=== PATIENT | female | born 1950 | race Caucasian/White ===

== ENCOUNTER 2017-03-03 22:41 | Inpatient (IN) | payer MEDICARE ==
[~2017-03-03] VITALS: Ht 160 cm; Wt 49.6 kg
[2017-03-03] MEDS ORDERED: ONDANSETRON 4 MG/2 ML VIAL IV ONE (22:45)
[2017-03-03] MEDS ORDERED: ENALAPRILAT DIHYDRATE 1.25 MG/1 ML VIAL IV ONE (22:45)
[2017-03-03] MEDS ORDERED: IV NORMAL SALINE 500 ML BAG IV ONE (22:45)
[2017-03-03 22:56] LABS: BASOPHILS # (AUTO) 0.2 K/uL (0.0-8.0); BASOPHILS % (AUTO) 1.7 % (0.0-2.0); EOSINOPHILS # (AUTO) 0.1 K/uL (0.0-0.7); EOSINOPHILS % (AUTO) 0.5 % (0.0-7.0); HEMATOCRIT 40.1 % (37-47); HEMOGLOBIN 13.5 G/DL (12.0-16.0); LYMPHOCYTES # (AUTO) 1.3 K/UL (0.8-4.8); LYMPHOCYTES % (AUTO) 9.9 % (20.5-51.5); MEAN CORPUSCULAR HEMOGLOBIN 32.7 UUG (27.0-31.0); MEAN CORPUSCULAR HGB CONC 34 g/dL (32.0-37.0); MONOCYTES # (AUTO) 0.8 K/UL (0.1-1.30); MONOCYTES % (AUTO) 6.1 % (0.0-11.0); NEUTROPHILS # (AUTO) 10.4 K/UL (1.8-8.9); NEUTROPHILS % (AUTO) 81.8 % (38.5-71.5); PLATELET COUNT (AUTO) 366 K/UL (150-450); RED BLOOD CELL COUNT(AUTO) 4.14 MIL/UL (4.2-5.4); WHITE BLOOD COUNT (AUTO) 12.8 K/UL (4.0-11.2)
[2017-03-03] MEDS ORDERED: ALTEPLASE 100 MG VIAL IV ONE (23:00)
--- NOTE | 2017-03-03 23:00 | NUR ---
IVAN RA FROM HOME. PT IS A 66 Y/O FEMALE. AMBULATORY WITH STEADY GAIT. SPEAKING IN FULL SENTENCES. NAD NOTED. VSS. HERE FOR: LEFT SIDED WEAKNESS THAT OCCURED AT 1730. NO FACIAL DROOP NOTED. +LEFT SIDED WEAKNESS ON ARM AND LEGS. PT IS ALERT/ORIENTED X 4. MD OSWALD AT BEDSIDE. CODE STROKE INITIATED. IV ACCESS INITIATED ORDERED BY . LAB COLLECTED. PT WENT TO CT WITH RN AT BEDSIDE. X-RAY DONE. MD SAAB [NEUROLOGIST] PERFORMED STROKE EVALUATION. AWARE OF LAST KNOWN WELL TIME WHICH WAS AT 1730. PT IS NOT QUALIFIED FOR TPA. MD OSWALD AWARE; TPA D/C. PT'S VSS STABLE.
[2017-03-03] MEDS ORDERED: ONDANSETRON 4 MG/2 ML VIAL ONE (23:03)
[2017-03-03] MEDS ORDERED: NORMAL SALINE FLUSH 10 ML DISP.SYRIN ONE (23:04)
[2017-03-03] MEDS ORDERED: IOHEXOL 350 100 ML INFUS..BTL ONE (23:04)
[2017-03-03] MEDS ORDERED: IV NORMAL SALINE 250 ML IV ONE (23:04)
[2017-03-03 23:09] LABS: CREATININE 0.6 mg/dL (0.6-1.3)
[2017-03-03 23:14] LABS: BILIRUBIN,DIRECT 0.1 mg/dL (0.0-0.2); BILIRUBIN,TOTAL 0.4 mg/dL (0.2-1.0); TOTAL PROTEIN, SERUM 6.9 g/dL (6.4-8.2)
--- NOTE | 2017-03-03 23:22 | NUR ---
Call placed to [facility], Dr. De Leon has been paged.
[2017-03-03] MEDS ORDERED: ACETAMINOPHEN 325 MG TABLET PO PRN (23:30)
[2017-03-03] MEDS ORDERED: ENOXAPARIN SODIUM 40 MG/0.4 ML DISP.SYRIN SQ SCH (23:30)
[2017-03-03] MEDS ORDERED: ASPIRIN 325 MG TABLET PO ONE (23:45)
[2017-03-04] MEDS ORDERED: ASPIRIN 325 MG TABLET ONE (00:01)
--- NOTE | 2017-03-04 00:15 | NUR ---
REPORT GIVEN TO AUGUST LLANOS AWARE OF PT'S CURRENT CONDITION. WILL CONTINUE FURTHER PLAN OF CARE
[2017-03-04 00:32] LABS: THYROID STIMULATING HORMONE 6.14 mIU/mL (0.358-3.740)
--- NOTE | 2017-03-04 00:40 | NUR ---
RECEIVED PATIENT FROM ER VIA GURNEY, ACCOMPANIED BY SPOUSE. PT IS ALERT, RESPONSIVE, IN NO ACUTE DISTRESS. PT IS ADMITTED TO TELE UNDER THE CARE OF DR. WALTERS. DX: STROKE. NOTIFIED FOR NEW ORDERS. BELONGING LIST DONE, NEW ADMISSION PROCESS AND CARE PLAN INITIATED. LEFT SIDE WEAKNESS NOTED. NIHSS DONE, CORE MEASURES DONE PER PROTOCOL. PT IS TELE - SR, NO C/O OF CHEST PAIN/SOB, NO HEADACHE, NO NAUSEA/VOMITING. SAFETY MEASURES IN PLACE, CALL LIGHT WITHIN REACH. WILL CONTINUE TO MONITOR.
[2017-03-04 00:44] LABS: POTASSIUM 2.5 mmol/L (3.5-5.1)
[2017-03-04 00:49] VITALS: BP 125/70
[2017-03-04 00:57] LABS: *BILIRUBIN,URIN NEGATIVE (NEGATIVE); *BLOOD, URINE Trace-intact (NEGATIVE); *CLARITY,URINE CLEAR (CLEAR); *COLOR,URINE YELLOW (YELLOW); *KETONES,URINE 1+ (NEGATIVE); *PROTEIN,URINE NEGATIVE (NEGATIVE); *UROBILINOGEN,URINE 0.2 E.U./dl (NORMAL); LEUKOCYTE ESTERASE ,URINE TRACE (NEGATIVE); NITRITE, URINE NEGATIVE (NEGATIVE); PH,URINE 7.5 (5.0-8.0); UGLUCOSE NEGATIVE (NEGATIVE)
[2017-03-04] MEDS ORDERED: POTASSIUM CHLORIDE 20 MEQ TAB.PRT.SR PO SCH (01:00)
[2017-03-04 01:08] LABS: BACTERIA,URINE RARE /HPF (NONE SEEN); RBC,URINE 0-3 /HPF (0-3); SQUAMOUS EPITHELIAL CELL,UR FEW /HPF (NONE SEEN)
[2017-03-04] MEDS: BLOOD SUGAR DIAGNOSTIC 1 EACH STRIP VI SCH ×6 (01:12→21:21)
[2017-03-04 04:41] VITALS: BP 109/66
--- NOTE | 2017-03-04 06:00 | NUR ---
PT SLEPT WELL, IN NO ACUTE DISTRESS. PT IS PLEASANT, COOPERATIVE. UPPER/LOWER LEFT SIDE EXTREMITY WEAKNESS NOTED. SAFETY MEASURES IN PLACE, WILL CONTINUE TO MONITOR.
--- NOTE | 2017-03-04 06:00 | NUR ---
PT NOT NPO. PLS SEE ACCUCHECK SCHEDULED FOR 72.
[2017-03-04] MEDS: ONDANSETRON 4 MG/2 ML VIAL IV PRN ×3 (06:13→18:30)
[2017-03-04] MEDS ORDERED: ONDANSETRON 4 MG/2 ML VIAL ONE (06:23)
--- NOTE | 2017-03-04 07:30 | NUR ---
PAGED DR. WALTERS REGARDING CHANGES IN THE PATIENT'S LEFT SIDE MOVEMENT. AWAITING FOR CALL BACK
--- NOTE | 2017-03-04 07:45 | NUR ---
MD NOTIFIED REGARDING CHANGE IN LEFT SIDED WEAKNESS. PT IS NOT ABLE TO MOVE LEFT ARM, ABLE TO LIFT LEFT LEG ABOUT AN INCH AND NOT ABLE TO WIGGLE TOES.
[2017-03-04] MEDS: ASPIRIN EC 81 MG TABLET.DR PO SCH (08:46)
[2017-03-04] MEDS ORDERED: POTA10CA43 PO (09:16)
[2017-03-04] MEDS ORDERED: GABA-532 PO (09:16)
[2017-03-04] MEDS ORDERED: AMIL1TAB2 PO (09:16)
[2017-03-04] MEDS ORDERED: ESCI10TA PO (09:16)
[2017-03-04] MEDS ORDERED: LEVO100T PO (09:16)
[2017-03-04] MEDS ORDERED: GABA-534 PO (09:16)
[2017-03-04] MEDS ORDERED: DISU500T3 PO (09:16)
[2017-03-04] MEDS: CEFTRIAXONE 1 G in IV DEXTROSE 5% 50 ML IV SCH (11:00)
[2017-03-04 11:10] VITALS: BP 130/71
[2017-03-04] MEDS: LEVOTHYROXINE SODIUM 100 MCG TABLET PO SCH (13:13)
[2017-03-04] MEDS: PANTOPRAZOLE SODIUM 40 MG TABLET.DR PO SCH (13:13)
[2017-03-04 15:43] VITALS: BP 144/75
[2017-03-04] MEDS: GABAPENTIN 100 MG CAPSULE PO SCH (17:35)
[2017-03-04 20:30] VITALS: BP 136/77
[2017-03-04] MEDS: SIMVASTATIN 40 MG TABLET PO SCH (20:58)
[2017-03-04] MEDS: GABAPENTIN 300 MG CAPSULE PO SCH (20:58)
[2017-03-04] MEDS: ENOXAPARIN SODIUM 40 MG/0.4 ML DISP.SYRIN SQ SCH (21:00)
--- NOTE | 2017-03-04 23:30 | NUR ---
Patient c/o of stuffy nose/congestion and difficulty breathing through nostrils. Provided warm, moist washcloth to soothe and humidify nostrils. Provided hot water to drink. Patient still c/o of stuffy nose and stated "I have to have the nose spray, I can't breath through my nose". MD notified to request for orders.
--- NOTE | 2017-03-04 23:50 | NUR ---
New order for nasal spray taken by event manager from .
[2017-03-05] VITALS: BP 135/75
[2017-03-05] MEDS: FLUTICASONE PROP NASAL SPRAY 16 GM BOTTLE NS PRN ×2 (00:07→14:09)
[2017-03-05] MEDS ORDERED: Z GUARD REMEDY PASTE 57 GM TUBE TOP PRN (05:30)
--- NOTE | 2017-03-05 05:58 | NUR ---
Pt slept intermittently, in no acute distress. NIHSS done per shift. Pt is very pleasant and c/o occasionally of being uncomfortable in bed. Assisted, repositioned patient for comfort. No c/o of nausea from midnight through the morning. Patient kept clean/dry. Safety measures in place, will continue to monitor.
[2017-03-05] MEDS: PANTOPRAZOLE SODIUM 40 MG TABLET.DR PO SCH (06:03)
[2017-03-05] MEDS: LEVOTHYROXINE SODIUM 100 MCG TABLET PO SCH (06:03)
[2017-03-05] MEDS: BLOOD SUGAR DIAGNOSTIC 1 EACH STRIP VI SCH ×4 (06:37→21:38)
--- NOTE | 2017-03-05 08:00 | NUR ---
PATIENT RECEIVED SITTING UP IN BED, NO ACUTE DISTRESS NOTED. PLEASANT UPON APPROACH. AOX4. PT C/O LEFT SIDE WEAKNESS, UNABLE TO LIFT LEFT ARM OR LEFT LEG UPON ASSESSMENT BUT ABLE TO WIGGLE FINGERS AND DENIES ANY NUMBNESS. NO SLURRING OF SPEECH NOTED. WILL CONTINUE TO MONITOR FOR SAFETY. BED IN LOW AND LOCKED POSITION. CALL LIGHT WITHIN REACH.
[2017-03-05 08:18] LABS: CREATININE 0.6 mg/dL (0.6-1.3)
[2017-03-05] MEDS: ASPIRIN EC 81 MG TABLET.DR PO SCH (08:27)
[2017-03-05] MEDS: ESCITALOPRAM OXALATE 10 MG TABLET PO SCH (08:27)
[2017-03-05] MEDS: GABAPENTIN 100 MG CAPSULE PO SCH ×2 (08:27→18:06)
[2017-03-05] MEDS: ONDANSETRON 4 MG/2 ML VIAL IV PRN ×2 (08:38→22:09)
[2017-03-05] MEDS: CEFTRIAXONE 1 G in IV DEXTROSE 5% 50 ML IV SCH (10:46)
[2017-03-05] MEDS: POTASSIUM CHLORIDE 10 MEQ CAPSULE.SA PO SCH (11:40)
[2017-03-05 11:42] VITALS: BP 133/65
--- NOTE | 2017-03-05 13:00 | NUR ---
PT SITTING UP IN BED, NO ACUTE DISTRESS NOTED. PT FAMILY AT BEDSIDE. GIVEN FLONASE REQUESTED BY PT. DENIES ANY PAIN OR SOB AT THIS TIME. SEEN BY PHYSICAL THERAPY. WILL CONTINUE TO MONITOR FOR SAFETY.
[2017-03-05] MEDS ORDERED: CLOPIDOGREL 75 MG TABLET PO ONE (16:15)
[2017-03-05 16:24] VITALS: BP 129/65
--- NOTE | 2017-03-05 17:22 | NUR ---
PT SITTING UP IN BED EATING DINNER, PT FAMILY AT BEDSIDE. BLOOD SUGAR PRE DINNER 100MG/DL, NO S/S HYPO/HYPERGLYCEMIA NOTED. DENIES ANY PAIN AT THIS TIME.
[2017-03-05 21:00] VITALS: BP 122/81
[2017-03-05] MEDS ORDERED: CLOPIDOGREL 75 MG TABLET PO SCH (21:00)
--- NOTE | 2017-03-05 21:15 | NUR ---
REPLACED PATIENT'S MATTRESS TO AN AIR/SPECIALTY MATTRESS.
[2017-03-05] MEDS: SIMVASTATIN 40 MG TABLET PO SCH (21:34)
[2017-03-05] MEDS: GABAPENTIN 300 MG CAPSULE PO SCH (21:34)
[2017-03-05] MEDS: ENOXAPARIN SODIUM 40 MG/0.4 ML DISP.SYRIN SQ SCH (21:39)
[2017-03-06 00:07] VITALS: BP 131/72
--- NOTE | 2017-03-06 01:30 | NUR ---
PT ANXIOUS, RESTLESS, NOT BEING ABLE TO SLEEP. PROVIDED NON-PHARM INTERVENTIONS, MADE COMFORTABLE IN BED, REPOSITIONED, PROVIDED WARM BLANKET. MD NOTIFIED, REQUESTED MEDICATION TO HELP WITH HER ANXIETY/SLEEP.
[2017-03-06] MEDS ORDERED: LORAZEPAM 2 MG/1 ML VIAL IV PRN (02:15)
--- NOTE | 2017-03-06 02:15 | NUR ---
RECEIVED NEW ORDER FROM . READ BACK DONE, NEW ORDER CARRIED OUT.
--- NOTE | 2017-03-06 02:20 | NUR ---
PT IS HALF ASLEEP, AROUSABLE. PT STATED "I HAVE SETTLED DOWN". PT IS LESS ANXIOUS. ATIVAN NOT ADMINISTERED. WILL CONTINUE TO MONITOR.
[2017-03-06] MEDS ORDERED: LORAZEPAM 2 MG/1 ML VIAL ONE (03:50)
--- NOTE | 2017-03-06 03:50 | NUR ---
Pt woke up anxious, restless, c/o of uncomfortable in bed, bed too small. Patient claims to hear someone in her toilet to be vomiting a lot and banging the door. Patient forgetful at times. Does not remember bed was replaced at night to an air mattress. Administered med for anxiety as ordered. Will reassess and monitor. Safety measures in place, bed alarm on, side rails up, call light within reach.
[2017-03-06 04:58] VITALS: BP 140/81
--- NOTE | 2017-03-06 06:00 | NUR ---
Pt slept well after administering Ativan. Pt stated comfort and relief. Pt in no acute distress, kept clean/dry, repositioned for comfort. Pt dislikes the air mattress and feels that she prefers the bed as originally situated. Safety measures in place, call light within reach, will continue to monitor. Pt is on tele sinus rhythm, no c/o of sob/chest pain.
[2017-03-06] MEDS: LEVOTHYROXINE SODIUM 100 MCG TABLET PO SCH (06:14)
[2017-03-06] MEDS: PANTOPRAZOLE SODIUM 40 MG TABLET.DR PO SCH (06:14)
[2017-03-06 06:55] LABS: CREATININE 0.7 mg/dL (0.6-1.3); MAGNESIUM 1.5 mg/dL (1.8-2.4); PHOSPHOROUS 3.2 mg/dL (2.5-4.9); POTASSIUM 3.2 mmol/L (3.5-5.1)
[2017-03-06 06:57] LABS: BASOPHILS % (AUTO) 0.2 % (0.0-2.0); EOSINOPHILS % (AUTO) 0.5 % (0.0-7.0); HEMATOCRIT 36.4 % (31.2-41.9); HEMOGLOBIN 12.6 g/dL (10.9-14.3); LYMPHOCYTES # (AUTO) 1.2 K/uL (20.0-40.0); LYMPHOCYTES % (AUTO) 15.1 % (20.5-51.5); MEAN CORPUSCULAR HEMOGLOBIN 33.7 uug (24.7-32.8); MEAN CORPUSCULAR HGB CONC 35 g/dL (32.3-35.6); MEAN CORPUSCULAR VOLUME 97.1 fL (75.5-95.3); MONOCYTES # (AUTO) 0.7 K/uL (2.0-10.0); MONOCYTES % (AUTO) 9.5 % (0.0-11.0); NEUTROPHILS # (AUTO) 5.7 K/uL (1.8-8.9); NEUTROPHILS % (AUTO) 74.7 % (38.5-71.5); PLATELET COUNT (AUTO) 273 K/uL (179-408); RED BLOOD CELL COUNT(AUTO) 3.75 MIL/uL (3.63-4.92)
[2017-03-06 07:08] LABS: WHITE BLOOD COUNT (AUTO) 7.6 K/uL (3.8-11.8)
[2017-03-06] MEDS: BLOOD SUGAR DIAGNOSTIC 1 EACH STRIP VI SCH ×2 (07:11→12:17)
[2017-03-06] MEDS: ESCITALOPRAM OXALATE 10 MG TABLET PO SCH (08:39)
[2017-03-06] MEDS: POTASSIUM CHLORIDE 10 MEQ CAPSULE.SA PO SCH (08:40)
[2017-03-06] MEDS: GABAPENTIN 100 MG CAPSULE PO SCH (08:40)
[2017-03-06] MEDS ORDERED: SIMV40TA5 PO (10:00)
[2017-03-06] MEDS ORDERED: CLOP75TA15 PO (10:00)
[2017-03-06 11:23] VITALS: BP 128/72
--- NOTE | 2017-03-06 12:00 | NUR ---
Received awake, alert, oriented x 3, forgetful at times, left sided weakness. Incontinence care done. Repositioned comfortably.
[2017-03-06] MEDS: CEFTRIAXONE 1 G in IV DEXTROSE 5% 50 ML IV SCH (12:16)
[2017-03-06] MEDS ORDERED: POTASSIUM CHLORIDE 20 MEQ TAB.PRT.SR PO ONE (13:45)
[2017-03-06] MEDS ORDERED: MAGNESIUM OXIDE 400 MG TABLET PO ONE (14:00)
--- NOTE | 2017-03-06 14:30 | NUR ---
With discharge order to ARU. Report given to Shelia. Saline lock removed. Discharged per wheelchair in fair condition, not in distress, afebrile.
== END 2017-03-06 14:40 | DRG 65 ==
LOC: ER 22:42 → TELE 03-04 00:04
PROVIDERS: ADMIT Internal Medicine; ATTEND Internal Medicine
DX: I63.9 Cerebral infarction, unspecified (principal); E22.2 Syndrome of inappropriate secretion of antidiuretic hormone; G62.9 Polyneuropathy, unspecified; G81.94 Hemiplegia, unspecified affecting left nondominant side; N39.0 Urinary tract infection, site not specified; E03.9 Hypothyroidism, unspecified; F32.9 Major depressive disorder, single episode, unspecified; F41.9 Anxiety disorder, unspecified; I10 Essential (primary) hypertension; M19.90 Unspecified osteoarthritis, unspecified site; D72.829 Elevated white blood cell count, unspecified; F10.21 Alcohol dependence, in remission; T43.225A Adverse effect of selective serotonin reuptake inhibitors, initial encounter; Y92.009 Unspecified place in unspecified non-institutional (private) residence as the place of occurrence of the external cause
CPT/HCPCS: 36415; 70030-TC; 70450; 70496; 70551; 71010; 83735; 84100; 84443; 85025; 85651; 85730; 92610; 93005; 93307; 93880; 97110; 97112; 97530; A4663; J0696; J1650; J2060; J2405; J3490; J3535; J7040; J7050; J7060; Q9967

== ENCOUNTER 2017-03-06 14:47 | Inpatient (IN) | payer MEDICARE ==
[~2017-03-06] VITALS: Ht 160 cm; Wt 49.4 kg
[~2017-03-06 14:47] MED LIST: AMIL1TAB2 PO; CLOP75TA15 PO; DISU500T3 PO; ESCI10TA PO; GABA-532 PO; GABA-534 PO; LEVO100T PO; POTA10CA43 PO; SIMV40TA5 PO
--- NOTE | 2017-03-06 14:50 | NUR ---
Pt report received from [facility]. Room prepared and board updated. Pt assessed v/s stable and taken, 98.0 temp, 68 pulse, 19 RR, 116/72, 97% on RA, pictures taken and placed in chart. No c/o pain, accompanied by at bedside and assisted with initial interview questions. made aware, meds reconciled. Call light within reach will continue to monitor and endorse to plastics and composites inspector.
[2017-03-06 15:32] VITALS: BP 116/72
[2017-03-06] MEDS ORDERED: Z GUARD REMEDY PASTE 57 GM TUBE TOP PRN (16:15)
[2017-03-06] MEDS: GABAPENTIN 100 MG CAPSULE PO SCH (18:22)
--- NOTE | 2017-03-06 19:50 | NUR ---
Patient seen during rounds, awake and with at bedside. Patient is alert and verbally responsive. Vital signs taken WNL, BP 118/69, T 97.7, P 72, R 17, O2 sat 97% RA. Diaper changed per soiling. Redness noted on her sacral area, applied with Z guard. Pt. appeared concerns about her condition. Encouraged pt. to verbalize her concerns. Pt. expressed her feelings about her condition but at the same time expressed her willingness to start her therapy (PT/OT) tomorrow. Denies pain at this time. Safety measures provided. Call light in reach. Will continue to monitor the patient.
[2017-03-06] MEDS: CLOPIDOGREL 75 MG TABLET PO SCH (20:38)
[2017-03-06] MEDS ORDERED: ONDANSETRON HCL 4 MG TABLET PO PRN (21:15)
[2017-03-06] MEDS: GABAPENTIN 300 MG CAPSULE PO SCH (21:38)
[2017-03-06] MEDS: SIMVASTATIN 40 MG TABLET PO SCH (21:38)
[2017-03-06] MEDS ORDERED: ONDANSETRON HCL 4 MG TABLET ONE (21:45)
[2017-03-06 21:55] VITALS: BP 118/69
--- NOTE | 2017-03-07 06:05 | NUR ---
Pt. slept throughout the entire shift. Diaper changed per soiling. Denies of any pain. Kept clean, dry and comfortable. Will endorse to AM shift nurse.
[2017-03-07] MEDS: LEVOTHYROXINE SODIUM 100 MCG TABLET PO SCH (06:39)
[2017-03-07] MEDS: BLOOD SUGAR DIAGNOSTIC 1 EACH STRIP VI SCH ×4 (07:06→20:20)
[2017-03-07 07:30] VITALS: BP 110/63
[2017-03-07 07:51] LABS: CREATININE 0.7 mg/dL (0.6-1.3); MAGNESIUM 1.9 mg/dL (1.8-2.4); PHOSPHOROUS 3.6 mg/dL (2.5-4.9); POTASSIUM 3.5 mmol/L (3.5-5.1)
[2017-03-07 07:54] LABS: BASOPHILS % (AUTO) 0.3 % (0.0-2.0); EOSINOPHILS # (AUTO) 0.1 K/uL (0.0-0.7); EOSINOPHILS % (AUTO) 1.1 % (0.0-7.0); HEMATOCRIT 37.1 % (31.2-41.9); LYMPHOCYTES # (AUTO) 1.3 K/uL (20.0-40.0); LYMPHOCYTES % (AUTO) 16.2 % (20.5-51.5); MEAN CORPUSCULAR HEMOGLOBIN 33.9 uug (24.7-32.8); MEAN CORPUSCULAR HGB CONC 35 g/dL (32.3-35.6); MEAN CORPUSCULAR VOLUME 97.2 fL (75.5-95.3); MONOCYTES # (AUTO) 0.7 K/uL (2.0-10.0); MONOCYTES % (AUTO) 9.1 % (0.0-11.0); NEUTROPHILS # (AUTO) 5.7 K/uL (1.8-8.9); NEUTROPHILS % (AUTO) 73.3 % (38.5-71.5); PLATELET COUNT (AUTO) 303 K/uL (179-408); RED BLOOD CELL COUNT(AUTO) 3.82 MIL/uL (3.63-4.92); WHITE BLOOD COUNT (AUTO) 7.8 K/uL (3.8-11.8)
[2017-03-07] MEDS: POTASSIUM CHLORIDE 10 MEQ CAPSULE.SA PO SCH (09:18)
[2017-03-07] MEDS: ESCITALOPRAM OXALATE 10 MG TABLET PO SCH (09:18)
[2017-03-07] MEDS: GABAPENTIN 100 MG CAPSULE PO SCH ×2 (09:18→17:04)
--- NOTE | 2017-03-07 12:15 | NUR ---
Pt SBAR report received, board updated. Pt assessed, denies pain at this time. Pt compliant with all routine morning medication administration, V/S WNL. Grupo brought all at home medications, assisted in completing POLST, signed and placed in chart. is at bedside. Pt has been able to show slight signs of improvement to Upper Left sided flaccidity AEB wiggling fingers slightly. Pt is optimistic and hopeful towards rehabilitation, and eager to actively participate in therapies as tolerated. All comfort and safety measures met. Personal items and call light within reach. Will continue to monitor.
[2017-03-07] MEDS: CLOPIDOGREL 75 MG TABLET PO SCH (17:04)
--- NOTE | 2017-03-07 19:30 | NUR ---
Received patient lying in bed, no s/s of acute distress. No complaints of pain at this time. Call light within reach. Encouraged to call for help when necessary. Will continue to monitor.
--- NOTE | 2017-03-07 19:35 | NUR ---
Pt has remained stable all shift, no changes, seen by MD, new orders for colace received. Will continue to monitor and endorse repair service clerk.
[2017-03-07] MEDS: DOCUSATE SODIUM 100 MG CAPSULE PO SCH (20:16)
[2017-03-07] MEDS: GABAPENTIN 300 MG CAPSULE PO SCH (20:16)
[2017-03-07] MEDS: SIMVASTATIN 40 MG TABLET PO SCH (20:16)
[2017-03-07 21:21] VITALS: BP 106/66
[2017-03-08] MEDS: LEVOTHYROXINE SODIUM 100 MCG TABLET PO SCH (07:10)
--- NOTE | 2017-03-08 07:15 | NUR ---
Patient awake in bed, no s/s of acute distress. No complaints of pain at this time. Slept well. Comfort and safety measures in place. Due meds given. Needs attended. Frequent checks done. Call light kept within reach. Endorsed accordingly.
[2017-03-08] MEDS: BLOOD SUGAR DIAGNOSTIC 1 EACH STRIP VI SCH ×5 (07:18→20:27)
[2017-03-08 07:35] VITALS: BP 98/46
[2017-03-08] MEDS: POTASSIUM CHLORIDE 10 MEQ CAPSULE.SA PO SCH (09:05)
[2017-03-08] MEDS: GABAPENTIN 100 MG CAPSULE PO SCH ×2 (09:05→17:15)
[2017-03-08] MEDS: ESCITALOPRAM OXALATE 10 MG TABLET PO SCH (09:05)
[2017-03-08] MEDS: HCTZ PO SCH ×2 (09:07→17:15)
[2017-03-08] MEDS: AMILORIDE PO SCH ×2 (09:07→17:15)
--- NOTE | 2017-03-08 11:53 | NUR ---
SBAR report received near bedside, board updated. Pt assessed, no SOB on RA, no c/o pain. Pt has agreed to switch rooms to 109. Pt compliant with all routinely scheduled medications this morning, blood sugar checked 43, juices provided and will be rechecked. Pt compliant with all therapies scheduled for today. Visitors at bedside currently. All comfort and safety measures met. Pt able to make needs known. Personal items and call light within reach. Will continue to monitor.
--- NOTE | 2017-03-08 12:15 | NUR ---
notified of low blood sugar. Juice provided, blood sugar rechecked to be 89, Dr. De Leon notified of the improvement. Will continue to monitor.
[2017-03-08] MEDS: CLOPIDOGREL 75 MG TABLET PO SCH (16:00)
--- NOTE | 2017-03-08 18:55 | NUR ---
Pt has remained stable with no changes throughout the shift. BS 79 prior to dinner. New visiter plus at bedside. All comfort and safety measures met. Call light within reach.Will endorse to housing specialist.
[2017-03-08 19:30] VITALS: BP 108/67
--- NOTE | 2017-03-08 19:40 | NUR ---
Pt. seen during rounds, with at bedside. Patient requested for diaper change, assisted FINAL INSPECTION SUPERVISOR in changing. Vital signs taken and recorded, T 98.3, P 71, R 19, BP 108/67, O2 sat @ 96% on RA. Breathing even and no signs of any respi. distress. Body weakness noted on Left hand and Leg. Encouraged patient to verbalize any discomfort. Denies of any pain. Safety measures provided. Placed call light in reach. Will monitor the patient.
--- NOTE | 2017-03-08 20:25 | NUR ---
HS Accu check done, Blood sugar 99mg/dL noted.
[2017-03-08] MEDS: SIMVASTATIN 40 MG TABLET PO SCH (20:26)
[2017-03-08] MEDS: DOCUSATE SODIUM 100 MG CAPSULE PO SCH (20:26)
[2017-03-08] MEDS: GABAPENTIN 300 MG CAPSULE PO SCH (20:26)
[2017-03-09] MEDS: LEVOTHYROXINE SODIUM 100 MCG TABLET PO SCH (06:30)
[2017-03-09] MEDS: BLOOD SUGAR DIAGNOSTIC 1 EACH STRIP VI SCH ×4 (06:37→20:47)
--- NOTE | 2017-03-09 06:47 | NUR ---
Pt. able to sleep the entire night. Diaper changed per soiling 2x in our shift, no BM. Levothyroxine given. AC Accu check done, blood sugar 94mg/dL. Assisted pt. ion brushing her teeth and washing her face. Pt. appreciated the help. Will endorse pt. to AM nurse.
[2017-03-09 07:15] VITALS: BP 114/63
[2017-03-09] MEDS: GABAPENTIN 100 MG CAPSULE PO SCH ×2 (09:00→17:21)
[2017-03-09] MEDS: POTASSIUM CHLORIDE 10 MEQ CAPSULE.SA PO SCH (09:00)
[2017-03-09] MEDS: AMILORIDE PO SCH ×2 (09:00→17:21)
[2017-03-09] MEDS: HCTZ PO SCH ×2 (09:00→17:21)
[2017-03-09] MEDS: ESCITALOPRAM OXALATE 10 MG TABLET PO SCH (10:18)
[2017-03-09] MEDS: CLOPIDOGREL 75 MG TABLET PO SCH (17:21)
--- NOTE | 2017-03-09 19:45 | NUR ---
Received pt. in bed, on semi sykes's position. Very responsive and requested to have her night meds given early so she can sleep early. Denies of any discomfort. Vital signs taken, see ASSISTANT TEACHER PRIMARY notes. Assisted pt. in ADL's, pt. very cooperative. Diaper changed per soiling. Pt. also requested to have her room wall clock be removed tonight because it was too loud for her, will return her wall clock in AM. Pt. very appreciative with our help. Call light in reach. Will monitor the pt.
[2017-03-09] MEDS: GABAPENTIN 300 MG CAPSULE PO SCH (20:17)
[2017-03-09] MEDS: SIMVASTATIN 40 MG TABLET PO SCH (20:17)
[2017-03-09] MEDS: DOCUSATE SODIUM 100 MG CAPSULE PO SCH (20:47)
--- NOTE | 2017-03-10 05:26 | NUR ---
Pt. slept well the entire shift. Pt. not in pain. Breathing even and nonlabored. Routine care provided. Will check her blood sugar later. Will endorse to AM shift nurse.
[2017-03-10] MEDS: BLOOD SUGAR DIAGNOSTIC 1 EACH STRIP VI SCH ×4 (06:32→21:18)
[2017-03-10] MEDS: LEVOTHYROXINE SODIUM 100 MCG TABLET PO SCH (06:32)
[2017-03-10 07:02] VITALS: BP 114/67
[2017-03-10] MEDS: GABAPENTIN 100 MG CAPSULE PO SCH ×2 (09:00→16:38)
[2017-03-10] MEDS: POTASSIUM CHLORIDE 10 MEQ CAPSULE.SA PO SCH (09:31)
[2017-03-10] MEDS: ESCITALOPRAM OXALATE 10 MG TABLET PO SCH (09:32)
[2017-03-10] MEDS: HCTZ PO SCH ×2 (09:32→16:36)
[2017-03-10] MEDS: AMILORIDE PO SCH ×2 (09:32→16:36)
--- NOTE | 2017-03-10 09:56 | NUR ---
SBAR report received near bedside, board updated. Pt assessed no acute distress noted, no c/o pain, no SOB. BS endorsed to be 86 prior to breakfast. Pt compliant with all routinely scheduled morning medications. Pt did refuse Gabapentin due to feeling it makes participation in therapy more difficult and only requests to take for evening dose. Assisted Pt to brush teeth. Pt very optimistic about LUE coordination improvement and care from this facility. All comfort and safety measures met. Pt able to make needs known. Personal items and call light within reach. Will continue to monitor.
--- NOTE | 2017-03-10 15:05 | NUR ---
Pt seen by MD, new orders received and will be followed up. Pt able to make needs known. Will continue to monitor.
[2017-03-10] MEDS: CLOPIDOGREL 75 MG TABLET PO SCH (16:36)
--- NOTE | 2017-03-10 18:11 | NUR ---
No notable changes, v/s stable and labs WNL. at bedside. Will continue to monitor and endorse oncoming shift.
--- NOTE | 2017-03-10 19:45 | NUR ---
Received pt in bed, awake alert and oriented watching television. Verbally responsive and able to make needs known. Denies pain or discomfort at this time. No acute distress noted. All safety measures and fall precautions maintained. Call light within reach. Will continue to monitor.
[2017-03-10 20:38] VITALS: BP 101/60
[2017-03-10] MEDS: SIMVASTATIN 40 MG TABLET PO SCH (21:15)
[2017-03-10] MEDS: GABAPENTIN 300 MG CAPSULE PO SCH (21:15)
[2017-03-10] MEDS: DOCUSATE SODIUM 250 MG CAPSULE PO SCH (21:21)
--- NOTE | 2017-03-10 21:30 | NUR ---
Pt currently complaining of feeling itchy all over her body. Upon assessment, no redness noted. Also complaining of feeling "stuffiness" and "tightness" on her right foot, stating "it feels like someone opened my foot, stuffed a sock inside, and sewed it back up." Denies pain currently. Elevated both feet. No acute distress noted. Dr. Edwards notified. Will continue to monitor. Safety maintained. Call light within reach.
[2017-03-10] MEDS ORDERED: diphenhydrAMINE 25 MG CAP PO ONE (23:45)
--- NOTE | 2017-03-10 23:45 | NUR ---
responded with new orders of Benadryl 25 mg PO x 1 now. Orders noted and carried out. Pt tolerated medicine well. Safety maintained. Call light within reach. Will continue to monitor.
[2017-03-11] MEDS ORDERED: diphenhydrAMINE 25 MG CAP PO ONE (00:02)
[2017-03-11] MEDS: LEVOTHYROXINE SODIUM 100 MCG TABLET PO SCH (06:30)
[2017-03-11] MEDS: BLOOD SUGAR DIAGNOSTIC 1 EACH STRIP VI SCH ×4 (06:37→20:09)
--- NOTE | 2017-03-11 06:50 | NUR ---
Pt slept comfortably throughout the evening with no acute distress. No further complaints pain or discomfort. All due medications given and tolerated well. Kept clean and dry. All safety measures and fall precautions maintained. Call light within reach. Will continue to monitor.
--- NOTE | 2017-03-11 07:30 | NUR ---
Received patient in bed, awake and verbally responsive, able to make her needs known, no complains of itchiness at this time, resident verbalized she slept well. No pain at this time, respirations even and regular,fall precautions and safety provided, will continue to monitor.
[2017-03-11 07:58] VITALS: BP 100/60
[2017-03-11] MEDS: DOCUSATE SODIUM 250 MG CAPSULE PO SCH (08:39)
[2017-03-11] MEDS: ESCITALOPRAM OXALATE 10 MG TABLET PO SCH (08:41)
[2017-03-11] MEDS: GABAPENTIN 100 MG CAPSULE PO SCH ×2 (08:41→17:00)
[2017-03-11] MEDS: POTASSIUM CHLORIDE 10 MEQ CAPSULE.SA PO SCH (08:41)
[2017-03-11] MEDS: HCTZ PO SCH ×2 (09:01→17:01)
[2017-03-11] MEDS: AMILORIDE PO SCH ×2 (09:01→17:01)
--- NOTE | 2017-03-11 14:29 | NUR ---
INTERDISCIPLINARY TEAM CONFERENCE
--- NOTE | 2017-03-11 16:30 | NUR ---
Patient is in bed, alert and verbally responsive, not in distress and not in any form of pain at this time, with at bedside. Patient has no episode of hypoglycemia or hyperglycemia at this time, due medications given, needs attended accordingly, patient participated with physical and occupational therapy for gait training and neuromuscular re-education, tolerated well. Fall precautions observed, needs attended, call light in reach, kept clean and dry.
[2017-03-11] MEDS: CLOPIDOGREL 75 MG TABLET PO SCH (17:00)
[2017-03-11 19:30] VITALS: BP 101/55
--- NOTE | 2017-03-11 19:40 | NUR ---
Received pt. lying on bed, awake and verbally resposive. Patient requested for diaper change, assisted [address] [employer] PILOT in changing. Vy discomfort. Denies of any pain. Safety measures provided. Placed call light in reach. Will monitor the patient.
[2017-03-11] MEDS: SIMVASTATIN 40 MG TABLET PO SCH (20:09)
[2017-03-11] MEDS: GABAPENTIN 300 MG CAPSULE PO SCH (20:09)
--- NOTE | 2017-03-11 21:30 | NUR ---
Pt. complaining of feeling itchy on her arms and neck again. Assessed pt. no redness noted. MD informed of pt's condition, awaiting for call back.
--- NOTE | 2017-03-11 22:35 | NUR ---
MD Dr. Espinal replied and ordered Benadryl 25 mg Q6H PRN for allergy.
--- NOTE | 2017-03-12 05:28 | NUR ---
Pt. slept the entire night and didn't even ask for Benadryl. No complains of any allergy/itchiness all over her body. Breathing even and nonlabored. Diaper changed per soiling x2. Pt. kept clean, dry and comfortable. All due meds given.Will endorse to next shift.
[2017-03-12] MEDS: LEVOTHYROXINE SODIUM 100 MCG TABLET PO SCH (06:27)
[2017-03-12] MEDS: BLOOD SUGAR DIAGNOSTIC 1 EACH STRIP VI SCH ×4 (06:27→21:33)
[2017-03-12] MEDS: ESCITALOPRAM OXALATE 10 MG TABLET PO SCH (08:35)
[2017-03-12] MEDS: GABAPENTIN 100 MG CAPSULE PO SCH ×2 (08:35→17:06)
[2017-03-12] MEDS: DOCUSATE SODIUM 250 MG CAPSULE PO SCH (08:35)
[2017-03-12] MEDS: POTASSIUM CHLORIDE 10 MEQ CAPSULE.SA PO SCH (08:35)
[2017-03-12] MEDS: AMILORIDE PO SCH ×2 (08:36→17:07)
[2017-03-12] MEDS: HCTZ PO SCH ×2 (08:36→17:07)
[2017-03-12 08:58] VITALS: BP 115/74
[2017-03-12] MEDS: METHYL SALICYLATE/MENTHOL CREAM 28 GM TUBE TOP PRN (15:48)
[2017-03-12] MEDS: CLOPIDOGREL 75 MG TABLET PO SCH (17:07)
--- NOTE | 2017-03-12 19:30 | NUR ---
PT IN ROOM ALERT AWAKE IN NO ACUTE DISTRESS. PT STILL NOTED WITH LEFT SIDE WEANESS BUT WITH CLEAR SPEECH. NO DIFFICULTY IN SWALLOWING NOTED. STATES SHE WOULD LIKE TO ALWAYS WEAR TWO DIAPERS. HOB ELEVATED 30 DEGREES AND REPOSITIONED. CALL LIGHT PLACED WITHIN REACH. DENIES ANY PAIN, DISCOMFORT, HEADACHES, OR SOB AT THIS TIME. CONTINUE TO MONITOR.
[2017-03-12] MEDS: SIMVASTATIN 40 MG TABLET PO SCH (20:48)
[2017-03-12] MEDS: GABAPENTIN 300 MG CAPSULE PO SCH (20:48)
[2017-03-12 21:02] VITALS: BP 122/70
--- NOTE | 2017-03-13 05:00 | NUR ---
PT IN ROOM ASLEEP IN NO ACUTE DISTRESS. ABLE TO REQUEST FOR ASSISTANCE WHEN NEEDED. NO NEW ORDERS AT THIS TIME. CALL LIGHT PLACED WITHIN REACH. CONTINUES TO REQUEST REPOSITIONING WHEN NEEDED. CONTINUE TO MONITOR.
[2017-03-13] MEDS: LEVOTHYROXINE SODIUM 100 MCG TABLET PO SCH (07:30)
[2017-03-13] MEDS: BLOOD SUGAR DIAGNOSTIC 1 EACH STRIP VI SCH ×4 (07:30→20:48)
[2017-03-13] MEDS: ESCITALOPRAM OXALATE 10 MG TABLET PO SCH (08:09)
[2017-03-13] MEDS: DOCUSATE SODIUM 250 MG CAPSULE PO SCH (08:09)
[2017-03-13] MEDS: POTASSIUM CHLORIDE 10 MEQ CAPSULE.SA PO SCH (08:09)
[2017-03-13] MEDS: HCTZ PO SCH ×2 (08:12→17:05)
[2017-03-13] MEDS: AMILORIDE PO SCH ×2 (08:12→17:05)
[2017-03-13] MEDS: GABAPENTIN 100 MG CAPSULE PO SCH ×2 (09:00→15:28)
[2017-03-13 09:03] VITALS: BP 104/58
[2017-03-13] MEDS: METHYL SALICYLATE/MENTHOL CREAM 28 GM TUBE TOP PRN ×2 (12:08→21:42)
[2017-03-13] MEDS: CLOPIDOGREL 75 MG TABLET PO SCH (17:05)
--- NOTE | 2017-03-13 17:43 | NUR ---
PT. OOB WITH 1 PERSON ASSIST TO [facility]. WORKING WITH PT , OT AND SPEECH WITH GOOD TOLERANCE. ENCOURAGED AND ASSISTED PATIENT WITH BLADDER TRAINING. PT. ENCOURAGED TO PARTICIPATED IN ADLS USING WEAKER SIDE. GOOD APPETITE. AND FEEDS SELF AND ASSIST WITH SET-UP OF TRAY. SPOUSE AND OTHER VISITOR PRESENT IN AFTERNOON. NO ACUTE DISTRESS.
--- NOTE | 2017-03-13 19:30 | NUR ---
RECEIVED PATIENT FROM DAY SHIFT NURSE. SHIFT REPORT AT BEDSIDE. PATIENT A/O X4 WITH NO SIGNS OF PAIN, SOB, OR ACUTE DISTRESS. PATIENT LYING COMFORTABLY IN BED AT START OF SHIFT. BED IN LOW POSITION X2 SIDE RAILS UP. PERTINENT ASSESSMENT DONE. CALL LIGHT WITHIN REACH OF PATIENT. WILL CONTINUE TO MONITOR PATIENT THROUGH SHIFT.
[2017-03-13] MEDS: SIMVASTATIN 40 MG TABLET PO SCH (20:40)
[2017-03-13] MEDS: GABAPENTIN 300 MG CAPSULE PO SCH (20:40)
[2017-03-13 21:26] VITALS: BP 92/55
--- NOTE | 2017-03-14 06:27 | NUR ---
patient slept well through the shift. no signs of pain, sob, or acute distress. vital signs stable through shift. able to make needs known. all medications administered as ordered per md. call light within reach of patient. safety measures implemented. will endorse to day shift nurse.
[2017-03-14] MEDS: LEVOTHYROXINE SODIUM 100 MCG TABLET PO SCH (06:40)
[2017-03-14] MEDS: BLOOD SUGAR DIAGNOSTIC 1 EACH STRIP VI SCH ×4 (06:45→20:58)
[2017-03-14] MEDS: ESCITALOPRAM OXALATE 10 MG TABLET PO SCH (08:40)
[2017-03-14] MEDS: POTASSIUM CHLORIDE 10 MEQ CAPSULE.SA PO SCH (08:40)
[2017-03-14] MEDS: HCTZ PO SCH ×2 (08:41→16:48)
[2017-03-14] MEDS: DOCUSATE SODIUM 250 MG CAPSULE PO SCH (08:41)
[2017-03-14] MEDS: AMILORIDE PO SCH ×2 (08:41→16:48)
[2017-03-14] MEDS: GABAPENTIN 100 MG CAPSULE PO SCH (08:42)
[2017-03-14 09:56] VITALS: BP 118/66
[2017-03-14] MEDS ORDERED: HCTZ PO SCH (14:33)
[2017-03-14] MEDS ORDERED: AMILORIDE PO SCH (14:33)
[2017-03-14] MEDS: CLOPIDOGREL 75 MG TABLET PO SCH (16:48)
[2017-03-14] MEDS ORDERED: diphenhydrAMINE 25 MG CAP PO PRN (19:15)
[2017-03-14] MEDS: GABAPENTIN 300 MG CAPSULE PO SCH (20:19)
[2017-03-14] MEDS: diphenhydrAMINE 25 MG CAP PO PRN (20:19)
[2017-03-14] MEDS: SIMVASTATIN 40 MG TABLET PO SCH (20:19)
[2017-03-14 21:44] VITALS: BP 100/57
--- NOTE | 2017-03-14 21:45 | NUR ---
A/o x4 lungs clear bilat c/o generalize itching. Given Benadryl 25 mg po. Pt states she took antabuse x 2weeks ago. Advised pt not to have have staff use alchol prep pads to wipe her skin due to cause itching. Accu check 144 no coverage. Disposable briefs clean and dry. Left U.E and L.E. weak. siderails up call light within reach bed in lowest position wheels locked and bed alarm on . Denies of any distress at this time.
[2017-03-15] MEDS: BLOOD SUGAR DIAGNOSTIC 1 EACH STRIP VI SCH ×4 (06:38→21:02)
[2017-03-15] MEDS: LEVOTHYROXINE SODIUM 100 MCG TABLET PO SCH (06:38)
--- NOTE | 2017-03-15 06:44 | NUR ---
Pt awake watching tv blood sugar this am 119 no coverage given took am meds. Denies of any distress. side rails up call light within reach.
[2017-03-15 08:00] VITALS: BP 102/57
[2017-03-15] MEDS: DOCUSATE SODIUM 250 MG CAPSULE PO SCH (09:36)
[2017-03-15] MEDS: GABAPENTIN 100 MG CAPSULE PO SCH (09:36)
[2017-03-15] MEDS: AMILORIDE PO SCH ×2 (09:37→17:47)
[2017-03-15] MEDS: ESCITALOPRAM OXALATE 10 MG TABLET PO SCH (09:37)
[2017-03-15] MEDS: HCTZ PO SCH ×2 (09:37→17:47)
[2017-03-15] MEDS: POTASSIUM CHLORIDE 10 MEQ CAPSULE.SA PO SCH (09:40)
[2017-03-15] MEDS: CLOPIDOGREL 75 MG TABLET PO SCH (17:47)
[2017-03-15 21:09] VITALS: BP 103/62
[2017-03-15] MEDS: SIMVASTATIN 40 MG TABLET PO SCH (21:09)
[2017-03-15] MEDS: GABAPENTIN 300 MG CAPSULE PO SCH (21:09)
[2017-03-16] MEDS: BLOOD SUGAR DIAGNOSTIC 1 EACH STRIP VI SCH ×4 (06:35→20:49)
[2017-03-16] MEDS: LEVOTHYROXINE SODIUM 100 MCG TABLET PO SCH (06:35)
--- NOTE | 2017-03-16 06:40 | NUR ---
Awake watching tv this am, given am meds and accu check done 96. Denies of any distress. Siderail up call light within reach.
[2017-03-16 08:37] VITALS: BP 135/57
[2017-03-16 08:40] VITALS: BP 96/61
[2017-03-16] MEDS: DOCUSATE SODIUM 250 MG CAPSULE PO SCH (10:19)
[2017-03-16] MEDS: GABAPENTIN 100 MG CAPSULE PO SCH (10:19)
[2017-03-16] MEDS: POTASSIUM CHLORIDE 10 MEQ CAPSULE.SA PO SCH (10:20)
[2017-03-16] MEDS: ESCITALOPRAM OXALATE 10 MG TABLET PO SCH (10:37)
[2017-03-16] MEDS: HCTZ PO SCH ×2 (10:37→17:42)
[2017-03-16] MEDS: AMILORIDE PO SCH ×2 (10:37→17:42)
[2017-03-16] MEDS: CLOPIDOGREL 75 MG TABLET PO SCH (17:42)
[2017-03-16 19:30] VITALS: BP 98/60
--- NOTE | 2017-03-16 20:22 | NUR ---
Pt. seen during rounds, seated on her wheelchair and requesting to be changed. Diaper changed per soiling. Patient stated that she's having a headache, pain level 3/10. MD informed with new order of Tylenol 650mg PRN Q6H for pain. Call light in reach. Will monitor the patient.
[2017-03-16] MEDS ORDERED: ACETAMINOPHEN 325 MG TABLET PO PRN (20:45)
--- NOTE | 2017-03-16 20:47 | NUR ---
pt. complaining of feeling nauseas but no emesis noted. Zofran PO given.
[2017-03-16] MEDS: GABAPENTIN 300 MG CAPSULE PO SCH (20:49)
[2017-03-16] MEDS: SIMVASTATIN 40 MG TABLET PO SCH (20:49)
[2017-03-16] MEDS: diphenhydrAMINE 25 MG CAP PO PRN (21:29)
--- NOTE | 2017-03-17 03:21 | NUR ---
Diaper changed per soiling. Upon our conversation, pt stated she took 6 cups of coffee yesterday. Informed pt. not to take too much coffee for it can cause headache or palpitation. Pt. understood now why she was feeling nauseas and having a headache, it was due to too much caffeine intake. Pt. said she will minimize her coffee intake.
--- NOTE | 2017-03-17 05:26 | NUR ---
pt. able to rest the entire shift. Nausea, headache and skin allergy relieved. Diaper changed per soiling. All needs attended to. Kept clean , dry and comfortable. Denies pain. No s/s of acute respi. distress.Will endorse to AM shift nurse.
[2017-03-17] MEDS: BLOOD SUGAR DIAGNOSTIC 1 EACH STRIP VI SCH ×4 (07:01→20:12)
[2017-03-17] MEDS: LEVOTHYROXINE SODIUM 100 MCG TABLET PO SCH (07:01)
--- NOTE | 2017-03-17 07:07 | NUR ---
acu check AC BF done, blood sugar 97mg/dL. will endorse to AM shift nurse.
--- NOTE | 2017-03-17 07:30 | NUR ---
Received patient on bed, awake, A and O X 4, Able to make needs known. No acute distress noted. Respirations are even and unlabored. No complaints of pain and discomfort at this time. Requested to be showered today. Safety and fall prevention measures observed at all times. All comfort measures provided. Call light within reach and answered in a timely manner. Will continue to monitor.
[2017-03-17 07:49] VITALS: BP 94/59
[2017-03-17] MEDS: AMILORIDE PO SCH ×2 (09:18→16:50)
[2017-03-17] MEDS: HCTZ PO SCH ×2 (09:18→16:50)
[2017-03-17] MEDS: ESCITALOPRAM OXALATE 10 MG TABLET PO SCH (09:19)
[2017-03-17] MEDS: GABAPENTIN 100 MG CAPSULE PO SCH (09:19)
[2017-03-17] MEDS: POTASSIUM CHLORIDE 10 MEQ CAPSULE.SA PO SCH (09:19)
[2017-03-17] MEDS: DOCUSATE SODIUM 250 MG CAPSULE PO SCH (09:19)
--- NOTE | 2017-03-17 12:16 | NUR ---
ACCUCHECK DONE AT 10:30 AM 44 MG/DL. GAVE APPLE JUICE. RECHECKED AT 12:00 NN 112 MG/DL
[2017-03-17] MEDS: CLOPIDOGREL 75 MG TABLET PO SCH (16:50)
--- NOTE | 2017-03-17 19:15 | NUR ---
Received patient laying in bed. Alert and verbally responsive. Able to make needs known. Denies any pain and discomfort. No acute distress. No SOB. Kept clean and dry. All needs attended to promptly. Call light within reach. will continue to monitor.
[2017-03-17] MEDS: GABAPENTIN 300 MG CAPSULE PO SCH (20:09)
[2017-03-17] MEDS: SIMVASTATIN 40 MG TABLET PO SCH (20:09)
[2017-03-17 20:39] VITALS: BP 97/59
[2017-03-18] MEDS: LEVOTHYROXINE SODIUM 100 MCG TABLET PO SCH (06:47)
[2017-03-18] MEDS: BLOOD SUGAR DIAGNOSTIC 1 EACH STRIP VI SCH ×4 (06:50→20:26)
--- NOTE | 2017-03-18 06:55 | NUR ---
Patient slept comfortably throughout the night. No c/o pain and discomfort. No acute distress. No hypoglycemic episode noted throughout the shift. Blood sugar this AM is 101. Will endorse to day shift nurse. All needs attended to promptly. Call light within reach. Will continue to monitor.
--- NOTE | 2017-03-18 07:35 | NUR ---
Received patient awake, alert and oriented x4. Denies any pain. Not in any form of distress. Call light within reach.
[2017-03-18 07:39] LABS: BASOPHILS % (AUTO) 0.7 % (0.0-2.0); EOSINOPHILS # (AUTO) 0.1 K/uL (0.0-0.7); EOSINOPHILS % (AUTO) 2.9 % (0.0-7.0); HEMATOCRIT 35.4 % (31.2-41.9); HEMOGLOBIN 12.2 g/dL (10.9-14.3); LYMPHOCYTES # (AUTO) 0.9 K/uL (20.0-40.0); LYMPHOCYTES % (AUTO) 18.7 % (20.5-51.5); MEAN CORPUSCULAR HEMOGLOBIN 33.8 uug (24.7-32.8); MEAN CORPUSCULAR HGB CONC 35 g/dL (32.3-35.6); MONOCYTES # (AUTO) 0.5 K/uL (2.0-10.0); NEUTROPHILS # (AUTO) 3.3 K/uL (1.8-8.9); NEUTROPHILS % (AUTO) 67.7 % (38.5-71.5); PLATELET COUNT (AUTO) 335 K/uL (179-408); RED BLOOD CELL COUNT(AUTO) 3.61 MIL/uL (3.63-4.92); WHITE BLOOD COUNT (AUTO) 4.9 K/uL (3.8-11.8)
[2017-03-18 07:59] LABS: BILIRUBIN,TOTAL 0.3 mg/dL (0.2-1.0); CREATININE 0.7 mg/dL (0.6-1.3); MAGNESIUM 1.7 mg/dL (1.8-2.4); PHOSPHOROUS 4.2 mg/dL (2.5-4.9); POTASSIUM 3.4 mmol/L (3.5-5.1); TOTAL PROTEIN, SERUM 6.1 g/dL (6.4-8.2)
[2017-03-18] MEDS: HCTZ PO SCH ×2 (10:21→17:42)
[2017-03-18] MEDS: POTASSIUM CHLORIDE 10 MEQ CAPSULE.SA PO SCH (10:21)
[2017-03-18] MEDS: AMILORIDE PO SCH ×2 (10:21→17:42)
[2017-03-18] MEDS: ESCITALOPRAM OXALATE 10 MG TABLET PO SCH (10:22)
[2017-03-18] MEDS: GABAPENTIN 100 MG CAPSULE PO SCH ×2 (10:22→20:23)
[2017-03-18] MEDS: DOCUSATE SODIUM 250 MG CAPSULE PO SCH (10:22)
[2017-03-18 11:32] VITALS: BP 109/64
[2017-03-18] MEDS ORDERED: MAGNESIUM OXIDE 400 MG TABLET PO ONE (14:00)
[2017-03-18] MEDS ORDERED: POTASSIUM CHLORIDE 20 MEQ TAB.PRT.SR PO ONE (14:00)
--- NOTE | 2017-03-18 14:30 | NUR ---
Magnesium and potassium PO given
--- NOTE | 2017-03-18 14:39 | NUR ---
INTERDISCIPLINARY TEAM CONFERENCE
--- NOTE | 2017-03-18 17:00 | NUR ---
Tolerated therapy well. Attended to needs promptly. With at bed side. No untoward signs and symptoms.
[2017-03-18] MEDS: CLOPIDOGREL 75 MG TABLET PO SCH (17:42)
--- NOTE | 2017-03-18 19:30 | NUR ---
Received patient laying in bed. Alert and verbally responsive. Able to make needs known. Denies any pain and discomfort. No acute distress. No SOB. Kept clean and dry. All needs attended to promptly. Call light within reach. Will continue to monitor.
[2017-03-18 20:21] VITALS: BP 106/63
[2017-03-18] MEDS: SIMVASTATIN 40 MG TABLET PO SCH (20:23)
[2017-03-18] MEDS ORDERED: GABAPENTIN 300 MG CAPSULE PO SCH (21:00)
[2017-03-18] MEDS: diphenhydrAMINE 25 MG CAP PO PRN (21:04)
[2017-03-19] MEDS: LEVOTHYROXINE SODIUM 100 MCG TABLET PO SCH (06:50)
[2017-03-19] MEDS: BLOOD SUGAR DIAGNOSTIC 1 EACH STRIP VI SCH ×4 (06:54→20:47)
--- NOTE | 2017-03-19 07:15 | NUR ---
Patient slept comfortably throughout the night. No c/o pain and discomfort. No acute distress. No SOB. Kept clean and dry. BS this morning is 93. All needs attended to promptly. Call light within reach. Will continue to monitor.
[2017-03-19 07:30] VITALS: BP 100/62
--- NOTE | 2017-03-19 07:45 | NUR ---
Received patient awake, up on bed, verbally responsive, coherent, not in any form of acute distress. She denies any pain or discomfort at this time. Call light placed within reach. Reminded to use call light for assistance with verbalized understanding. Assisted to her needs.
[2017-03-19] MEDS: GABAPENTIN 100 MG CAPSULE PO SCH ×3 (09:00→20:40)
[2017-03-19] MEDS: DOCUSATE SODIUM 250 MG CAPSULE PO SCH (10:06)
[2017-03-19] MEDS: POTASSIUM CHLORIDE 10 MEQ CAPSULE.SA PO SCH (10:06)
[2017-03-19] MEDS: ESCITALOPRAM OXALATE 10 MG TABLET PO SCH (10:07)
[2017-03-19] MEDS: AMILORIDE PO SCH ×2 (10:08→17:09)
[2017-03-19] MEDS: HCTZ PO SCH ×2 (10:08→17:09)
[2017-03-19] MEDS: CLOPIDOGREL 75 MG TABLET PO SCH (17:09)
--- NOTE | 2017-03-19 19:30 | NUR ---
Received patient from day shift nurse. shift report at bedside. patient A/O x4. patient lying comfortably in bed with no signs of pain, sob, or acute distress. vitals signs stable at start of shift. bed in low position x2 side rails up. pertinent assessment done. call light within reach of patient. will continue to monitor patient through shift.
[2017-03-19 20:12] VITALS: BP 100/59
[2017-03-19] MEDS: diphenhydrAMINE 25 MG CAP PO PRN (20:40)
[2017-03-19] MEDS: SIMVASTATIN 40 MG TABLET PO SCH (20:40)
[2017-03-20] MEDS: LEVOTHYROXINE SODIUM 100 MCG TABLET PO SCH (06:41)
[2017-03-20] MEDS: BLOOD SUGAR DIAGNOSTIC 1 EACH STRIP VI SCH ×4 (06:45→20:42)
--- NOTE | 2017-03-20 07:07 | NUR ---
patient slept intermittently through shift. no signs of pain, sob, or acute distress. all needs attended to. all medications administered as ordered per md. safety measures implemented. call light within reach of patient. will endorse to day shift nurse.
--- NOTE | 2017-03-20 07:30 | NUR ---
Patient received from night nurse in bed. Patient is alert, awake and oriented. Verbally responsive and able to make her needs known. No s/s of any distress noted. Breathing is even and unlabored. No complaints of any discomfort or pain. All needs are attended to.
[2017-03-20] MEDS: DOCUSATE SODIUM 250 MG CAPSULE PO SCH (08:17)
[2017-03-20] MEDS: POTASSIUM CHLORIDE 10 MEQ CAPSULE.SA PO SCH (08:18)
[2017-03-20] MEDS: ESCITALOPRAM OXALATE 10 MG TABLET PO SCH (08:18)
[2017-03-20] MEDS: HCTZ PO SCH ×2 (08:19→17:45)
[2017-03-20] MEDS: AMILORIDE PO SCH ×2 (08:19→17:45)
[2017-03-20] MEDS: GABAPENTIN 100 MG CAPSULE PO SCH ×2 (09:00→20:38)
[2017-03-20 09:20] VITALS: BP 107/75
[2017-03-20] MEDS: CLOPIDOGREL 75 MG TABLET PO SCH (16:06)
[2017-03-20 19:30] VITALS: BP 95/58
--- NOTE | 2017-03-20 19:30 | NUR ---
RECEIVED PATIENT FROM DAY SHIFT NURSE. SHIFT REPORT AT BEDSIDE. PATIENT LYING IN BED COMFORTABLY AT START OF SHIFT A/O X4, WITH NO SIGNS OF PAIN, SOB, OR ACUTE DISTRESS. PERTINENT ASSESSMENTS COMPLETED. SAFETY MEASURES IMPLEMENTED. BED IN LOW POSITION X2 SIDE RAILS UP. VITAL SIGNS STABLE AT START OF SHIFT. CALL LIGHT PLACED WITHIN REACH OF PT. WILL CONTINUE TO MONITOR PATIENT THROUGH SHIFT.
[2017-03-20] MEDS: diphenhydrAMINE 25 MG CAP PO PRN (20:38)
[2017-03-20] MEDS: SIMVASTATIN 40 MG TABLET PO SCH (20:38)
--- NOTE | 2017-03-21 05:31 | NUR ---
PATIENT SLEPT WELL THROUGH THE NIGHT. NO SIGNS OF PAIN, SOB, OR ACUTE DISTRESS. ALL NEEDS ATTENDED TO. ALL MEDICATIONS ADMINISTERED ORDERED PER MD. VITAL SIGNS STABLE THROUGH SHIFT. EDUCATED PATIENT ON THE IMPORTANCE OF CLEAN HYGIENE. ENCOURAGED PT TO USE BED CHAVARRIA OR ASK FOR ASSISTANCE IN USING THE RESTROOM INSTEAD OF USING DIAPERS TO PROMOTE INDEPENDENCE & PREVENT SKIN BREAKDOWN. SAFETY MEASURES IMPLEMENTED. BED IN LOW POSITION X2 SIDE RAILS UP. CALL LIGHT WITHIN REACH OF PT. WILL ENDORSE TO DAY SHIFT NURSE.
[2017-03-21] MEDS: LEVOTHYROXINE SODIUM 100 MCG TABLET PO SCH (06:35)
[2017-03-21] MEDS: BLOOD SUGAR DIAGNOSTIC 1 EACH STRIP VI SCH ×4 (06:38→20:19)
--- NOTE | 2017-03-21 07:30 | NUR ---
Seen patient upon rounds, in bed, awake and alert verbally responsive, able to make her needs known. Vitals signs checked, stable and within normal limits, not in distress, denies pain. no episode of hypoglycemia or hyperglycemia at this time. Needs attended promptly, kept clean and dry.
[2017-03-21 07:58] VITALS: BP 136/58
[2017-03-21] MEDS: DOCUSATE SODIUM 250 MG CAPSULE PO SCH (08:34)
[2017-03-21] MEDS: ESCITALOPRAM OXALATE 10 MG TABLET PO SCH (08:35)
[2017-03-21] MEDS: HCTZ PO SCH ×2 (08:36→16:47)
[2017-03-21] MEDS: POTASSIUM CHLORIDE 10 MEQ CAPSULE.SA PO SCH (08:36)
[2017-03-21] MEDS: AMILORIDE PO SCH ×2 (08:36→16:47)
[2017-03-21] MEDS: GABAPENTIN 100 MG CAPSULE PO SCH ×2 (08:40→20:17)
[2017-03-21 16:03] LABS: CREATININE 0.8 mg/dL (0.6-1.3); MAGNESIUM 1.8 mg/dL (1.8-2.4); PHOSPHOROUS 4.1 mg/dL (2.5-4.9); POTASSIUM 3.2 mmol/L (3.5-5.1)
[2017-03-21] MEDS: CLOPIDOGREL 75 MG TABLET PO SCH (16:46)
[2017-03-21] MEDS ORDERED: POTASSIUM CHLORIDE 20 MEQ TAB.PRT.SR PO ONE (18:00)
--- NOTE | 2017-03-21 18:00 | NUR ---
Patient is in bed, awake and alert not in any form of pain and not in distress. No episode of hypoglycemia or hyperglycemia at this time. Received new orders from Dr. Yves Lorenzo, to give a stat dose of Potassium Chloride 20meq., d/t low potassium level of 3.2, patient is made fully aware, verbalized understanding and order was noted and carried out accordingly. Needs attended promptly, due medications given. Call light kept within easy reach.
--- NOTE | 2017-03-21 19:30 | NUR ---
RECEIVED PATIENT FROM DAY SHIFT NURSE. SHIFT REPORT AT BEDSIDE. PATIENT LYING COMFORTABLY IN BED AT START OF SHIFT, A/O X4 WITH NO SIGNS OF PAIN, SOB, OR ACUTE DISTRESS. PATIENT ABLE TO MAKE NEEDS KNOWN. PERTINENT ASSESSMENT COMPLETED. BED IN LOW POSITION X2 SIDE RAILS UP. CALL LIGHT PLACED WITHIN REACH OF PATIENT. WILL CONTINUE TO MONITOR PATIENT THROUGH SHIFT.
[2017-03-21] MEDS: SIMVASTATIN 40 MG TABLET PO SCH (20:17)
[2017-03-21] MEDS: diphenhydrAMINE 25 MG CAP PO PRN (20:17)
[2017-03-21 21:52] VITALS: BP 122/59
--- NOTE | 2017-03-22 05:37 | NUR ---
PATIENT SLEPT WELL THROUGH THE SHIFT. NO SIGNS OF PAIN, SOB, OR ACUTE DISTRESS. VITAL SIGNS STABLE THROUGH SHIFT. ALL NEEDS ATTENDED TO. ENCOURAGED PATIENT TO USE BED CHAVARRIA AND/OR BATHROOM. PATIENT WAS ABLE TO USE BATHROOM AND AMBULATE WITH ASSISTANCE DURING THE SHIFT. ALL MEDS ADMINISTERED ORDERED PER MD. ACCUCHECK ACHS ORDERED PER MD. SAFETY MEASURES IMPLEMENTED. CALL LIGHT WITHIN REACH OF PATIENT. WILL ENDORSE TO DAY SHIFT NURSE.
[2017-03-22] MEDS: LEVOTHYROXINE SODIUM 100 MCG TABLET PO SCH (06:36)
[2017-03-22] MEDS: BLOOD SUGAR DIAGNOSTIC 1 EACH STRIP VI SCH ×2 (06:37→12:11)
[2017-03-22 07:57] VITALS: BP 105/70
[2017-03-22] MEDS: GABAPENTIN 100 MG CAPSULE PO SCH ×2 (08:27→20:32)
[2017-03-22] MEDS: HCTZ PO SCH ×2 (08:27→16:58)
[2017-03-22] MEDS: DOCUSATE SODIUM 250 MG CAPSULE PO SCH (08:27)
[2017-03-22] MEDS: POTASSIUM CHLORIDE 10 MEQ CAPSULE.SA PO SCH (08:27)
[2017-03-22] MEDS: ESCITALOPRAM OXALATE 10 MG TABLET PO SCH (08:27)
[2017-03-22] MEDS: AMILORIDE PO SCH ×2 (08:27→16:58)
--- NOTE | 2017-03-22 08:54 | NUR ---
pt seen on rounding. pt continues to be alert and oriented. pt maintained baseline NIH score. pt vitals stable. pt took meds whole. pt was assisted to change into clothes and did hygiene with assist. instructed pt to bowel and bladder train with walker. no sob noted. will continue to monitor.
[2017-03-22] MEDS: CLOPIDOGREL 75 MG TABLET PO SCH (16:58)
--- NOTE | 2017-03-22 18:55 | NUR ---
pt stable throughout the day. pt continues to use the diaper. assisted with needs throughout the day. maintained NIH scale. no new weakness noted. will endorse to mini shifter nurse.
[2017-03-22 19:30] VITALS: BP 98/62
[2017-03-22] MEDS: diphenhydrAMINE 25 MG CAP PO PRN (20:32)
[2017-03-22] MEDS: SIMVASTATIN 40 MG TABLET PO SCH (20:32)
--- NOTE | 2017-03-22 22:17 | NUR ---
Pt resting comfortably in bed. AAO x4. Assisted with hygiene and diaper changed. Pt is now trying to use the bed horn. No acute distress noted. No c/o pain or discomfort. Safety measures maintained. Call light and personal belongings within reach. Will continue to monitor.
--- NOTE | 2017-03-23 05:55 | NUR ---
Pt slept comfortably t/o the night. Uses diaper and bedpan to void. Assisted and changed as needed. Meds given per MD's order. Pt has been stable. No new changes in condition. All needs attended to promptly. Will endorse to day shift RN. Continue to monitor.
[2017-03-23] MEDS: LEVOTHYROXINE SODIUM 100 MCG TABLET PO SCH (06:38)
[2017-03-23 06:59] LABS: CREATININE 0.8 mg/dL (0.6-1.3); POTASSIUM 4.1 mmol/L (3.5-5.1)
--- NOTE | 2017-03-23 08:00 | NUR ---
received report from night nurse, patient stable, awake in bed. no s/s acute distress. pt pleasant but concerned regarding not having a TOP ICER on staff. assured patient that her needs will be met. will continue to monitor.
[2017-03-23] MEDS: POTASSIUM CHLORIDE 10 MEQ CAPSULE.SA PO SCH (08:52)
[2017-03-23] MEDS: ESCITALOPRAM OXALATE 10 MG TABLET PO SCH (08:52)
[2017-03-23] MEDS: DOCUSATE SODIUM 250 MG CAPSULE PO SCH (08:52)
[2017-03-23] MEDS: HCTZ PO SCH ×2 (08:52→16:27)
[2017-03-23] MEDS: AMILORIDE PO SCH ×2 (08:52→16:27)
[2017-03-23] MEDS: GABAPENTIN 100 MG CAPSULE PO SCH ×2 (08:53→20:48)
[2017-03-23 09:38] VITALS: BP 108/63
[2017-03-23] MEDS: CLOPIDOGREL 75 MG TABLET PO SCH (16:27)
--- NOTE | 2017-03-23 20:44 | NUR ---
Received pt on bed alert, awake and oriented x3. Able to make needs known. No acute distress noted. Denies pain. Complained of itchiness, medicated with benadryl PRN as ordered. No SOB noted. Vital signs stable. Kept clean, dry and comfortable. Call light within reach. All needs attended.
[2017-03-23] MEDS: SIMVASTATIN 40 MG TABLET PO SCH (20:48)
[2017-03-23] MEDS: diphenhydrAMINE 25 MG CAP PO PRN (20:48)
[2017-03-23 21:00] VITALS: BP 96/64
--- NOTE | 2017-03-24 05:26 | NUR ---
Patient slept well throughout the shift with no signs/symptoms of distress. No complaints of pain or discomfort. Denies pain. Encouraged pt to use bedpan or ambulate to the bathroom when needed, verbalized understanding. Kept clean, dry and comfortable. Call light within reach. All needs attended.
[2017-03-24] MEDS: LEVOTHYROXINE SODIUM 100 MCG TABLET PO SCH (06:25)
[2017-03-24 08:00] VITALS: BP 102/63
--- NOTE | 2017-03-24 08:00 | NUR ---
Received patient awake in bed, alert, verbally responsive, not in any form of acute distress. No complain of pain or any discomfort at this time. Call light placed within reach. Assisted to her needs.
[2017-03-24] MEDS: AMILORIDE PO SCH ×2 (08:27→16:39)
[2017-03-24] MEDS: HCTZ PO SCH ×2 (08:27→16:39)
[2017-03-24] MEDS: ESCITALOPRAM OXALATE 10 MG TABLET PO SCH (08:27)
[2017-03-24] MEDS: DOCUSATE SODIUM 250 MG CAPSULE PO SCH (08:28)
[2017-03-24] MEDS: POTASSIUM CHLORIDE 10 MEQ CAPSULE.SA PO SCH (08:28)
[2017-03-24] MEDS: GABAPENTIN 100 MG CAPSULE PO SCH ×2 (08:28→22:29)
[2017-03-24] MEDS: CLOPIDOGREL 75 MG TABLET PO SCH (16:39)
--- NOTE | 2017-03-24 20:30 | NUR ---
Received pt on bed alert, awake and oriented x3. Able to make needs known. No apparent distress noted. No complaints of pain or discomfort. No SOB noted. Encouraged pt to use bedpan, verbalized understanding. Vital signs stable. Kept clean, dry and comfortable. Call light within reach. All needs attended.
[2017-03-24 22:24] VITALS: BP 102/60
[2017-03-24] MEDS: diphenhydrAMINE 25 MG CAP PO PRN (22:29)
[2017-03-24] MEDS: SIMVASTATIN 40 MG TABLET PO SCH (22:29)
--- NOTE | 2017-03-25 05:28 | NUR ---
Patient slept well throughout the shift with no signs/symptoms of distress. No complaints of pain or discomfort noted. Encouraged pt to use bedpan or ambulate to the bathroom when needed, verbalized understanding. Kept clean, dry and comfortable. Call light placed within reach. All needs anticipated.
[2017-03-25] MEDS: LEVOTHYROXINE SODIUM 100 MCG TABLET PO SCH (06:30)
[2017-03-25 07:45] VITALS: BP 113/55
--- NOTE | 2017-03-25 07:45 | NUR ---
Received patient awake, alert, verbally responsive, not in any form of acute distress, watching TV. No complain of any pain or discomfort. Call light placed within reach. Needs attended to.
--- NOTE | 2017-03-25 08:54 | NUR ---
I agree Addendum: 03/25/17 at 0854 by ROSALIND JOEL OT Amended: Links added.
[2017-03-25] MEDS: DOCUSATE SODIUM 250 MG CAPSULE PO SCH (09:00)
[2017-03-25] MEDS: ESCITALOPRAM OXALATE 10 MG TABLET PO SCH (09:05)
[2017-03-25] MEDS: AMILORIDE PO SCH ×2 (09:07→17:20)
[2017-03-25] MEDS: GABAPENTIN 100 MG CAPSULE PO SCH ×2 (09:07→20:54)
[2017-03-25] MEDS: HCTZ PO SCH ×2 (09:07→17:20)
[2017-03-25] MEDS: POTASSIUM CHLORIDE 10 MEQ CAPSULE.SA PO SCH (09:07)
--- NOTE | 2017-03-25 14:24 | NUR ---
INTERDISCIPLINARY CONFERENCE MEETING
[2017-03-25] MEDS: CLOPIDOGREL 75 MG TABLET PO SCH (17:20)
[2017-03-25 20:00] VITALS: BP 97/58
--- NOTE | 2017-03-25 20:30 | NUR ---
Received pt on bed alert, awake and oriented x3. Able to make needs known. No complaints of pain or discomfort. Breathing even and unlabored with normal respiration. All due meds given as ordered and well tolerated. Vital signs stable. Kept clean, dry and comfortable. Call light within reach. All needs attended.
[2017-03-25] MEDS: diphenhydrAMINE 25 MG CAP PO PRN (20:54)
[2017-03-25] MEDS: SIMVASTATIN 40 MG TABLET PO SCH (20:54)
--- NOTE | 2017-03-26 05:33 | NUR ---
Patient slept well throughout the shift. No acute distress noted. No complaints of pain or discomfort. All due meds given as ordered and well tolerated. Changed diaper as needed. Kept clean, dry and comfortable. Call light within reach. All needs attended.
[2017-03-26] MEDS: LEVOTHYROXINE SODIUM 100 MCG TABLET PO SCH (06:38)
--- NOTE | 2017-03-26 08:13 | NUR ---
patient noted sitting up in bed on cell phone, denies pain at this time, no signs of distress, call light in reach, bed locked and in lowest position, all needs met at this time.
[2017-03-26] MEDS: DOCUSATE SODIUM 250 MG CAPSULE PO SCH (08:51)
[2017-03-26] MEDS: POTASSIUM CHLORIDE 10 MEQ CAPSULE.SA PO SCH (08:51)
[2017-03-26] MEDS: ESCITALOPRAM OXALATE 10 MG TABLET PO SCH (08:51)
[2017-03-26] MEDS: GABAPENTIN 100 MG CAPSULE PO SCH ×2 (08:52→20:43)
[2017-03-26] MEDS: AMILORIDE PO SCH ×2 (09:23→17:15)
[2017-03-26] MEDS: HCTZ PO SCH ×2 (09:23→17:15)
[2017-03-26 09:43] VITALS: BP 113/64
[2017-03-26 14:06] LABS: RENIN 3.144 ng/mL/hr (0.167-5.380)
[2017-03-26] MEDS: CLOPIDOGREL 75 MG TABLET PO SCH (17:16)
--- NOTE | 2017-03-26 19:45 | NUR ---
SBAR received at bedside. Received pt. in bed, semi sykes's watching TV and no s/s of any acute respi. distress. Vitals signs taken WNL. No s/s of any stroke. Seen by Dr. Espinal, with no new orders. Safety measures provided. Call light in reach. Will monitor the pt.
[2017-03-26] MEDS: SIMVASTATIN 40 MG TABLET PO SCH (20:43)
[2017-03-26] MEDS: diphenhydrAMINE 25 MG CAP PO PRN (20:43)
[2017-03-26 21:00] VITALS: BP 103/53
--- NOTE | 2017-03-27 05:23 | NUR ---
Pt. slept throughout the shift. Denies of any pain Breathing even and nonlabored. All due meds given. Kept clean, dry and comfortable. Will endorse to AM shift.
[2017-03-27] MEDS: LEVOTHYROXINE SODIUM 100 MCG TABLET PO SCH (06:54)
--- NOTE | 2017-03-27 07:22 | NUR ---
stroke education done. stroke booklet provided to the patient.
[2017-03-27 08:07] LABS: ALDOSTERONE 111.1 ng/dL (0.0-30.0)
[2017-03-27 08:14] VITALS: BP 109/60
[2017-03-27] MEDS: PREGABALIN 25 MG CAPSULE PO SCH (08:15)
[2017-03-27] MEDS: ESCITALOPRAM OXALATE 10 MG TABLET PO SCH (08:15)
[2017-03-27] MEDS: DOCUSATE SODIUM 250 MG CAPSULE PO SCH (08:15)
[2017-03-27] MEDS: POTASSIUM CHLORIDE 10 MEQ CAPSULE.SA PO SCH (08:15)
[2017-03-27] MEDS: HCTZ PO SCH ×2 (08:19→16:27)
[2017-03-27] MEDS: AMILORIDE PO SCH ×2 (08:19→16:27)
[2017-03-27] MEDS: CLOPIDOGREL 75 MG TABLET PO SCH (16:26)
--- NOTE | 2017-03-27 18:48 | NUR ---
pt stayed stable throughout the day. pt vitals assessed when pt felt dizzy probably due to new med lyrica. pt vitals stable when assessed. pt assisted to needs during shift. will continue to monitor.
[2017-03-27 19:30] VITALS: BP 105/60
--- NOTE | 2017-03-27 19:40 | NUR ---
Received pt in bed, AAO x 4. Verbally responsive and able to make needs known. Denies pain or discomfort at this time. No acute distress noted. All safety measures and fall precautions maintained. Call light and personal belongings within reach. Will continue to monitor.
[2017-03-27] MEDS: GABAPENTIN 100 MG CAPSULE PO SCH (20:47)
[2017-03-27] MEDS: SIMVASTATIN 40 MG TABLET PO SCH (20:47)
[2017-03-27] MEDS: diphenhydrAMINE 25 MG CAP PO PRN (21:39)
--- NOTE | 2017-03-28 05:20 | NUR ---
Pt slept comfortably throughout shift. No complaints of pain or discomfort. No acute distress noted. Verbally responsive and able to make needs known. All needs anticipated and met promptly. Kept clean, dry and comfortable. Call light within reach. All safety measures and fall precautions maintained. All medications given as ordered and well tolerated. Will continue to monitor. Will endorse to AM shift.
[2017-03-28] MEDS: LEVOTHYROXINE SODIUM 100 MCG TABLET PO SCH (06:33)
[2017-03-28] MEDS: ESCITALOPRAM OXALATE 10 MG TABLET PO SCH (08:48)
[2017-03-28] MEDS: POTASSIUM CHLORIDE 10 MEQ CAPSULE.SA PO SCH (08:48)
[2017-03-28] MEDS: AMILORIDE PO SCH ×2 (08:48→16:57)
[2017-03-28] MEDS: DOCUSATE SODIUM 250 MG CAPSULE PO SCH (08:48)
[2017-03-28] MEDS: PREGABALIN 25 MG CAPSULE PO SCH (08:48)
[2017-03-28] MEDS: HCTZ PO SCH ×2 (08:48→16:57)
[2017-03-28 08:50] VITALS: BP 106/61
[2017-03-28] MEDS: CLOPIDOGREL 75 MG TABLET PO SCH (16:57)
--- NOTE | 2017-03-28 17:30 | NUR ---
pt seen on roudning. pt continues to stay alert and oriented. bp stable. pt took meds whole. no aspirations. maintained NIH scale. pt continues to be minimum assist on trasfers. pt tolerated therapy. pt took pills whole. no aspirations noted. no new weakness noted. pt improving on affected side. will continue to monitor.
--- NOTE | 2017-03-28 19:00 | NUR ---
pt stable throuhgout the day. no falls seen. no new injuries. assisted as needed. maintained baseline vitals. will endorse to night shift manager nurse.
[2017-03-28 19:30] VITALS: BP 103/62
--- NOTE | 2017-03-28 19:40 | NUR ---
Received pt in bed, AAO x 4, watching television. Verbally responsive and able to make needs known. Denies pain or discomfort at this time. All safety measures and fall precautions maintained. Call light and all personal belongings within reach. Will continue to monitor.
[2017-03-28] MEDS: SIMVASTATIN 40 MG TABLET PO SCH (20:41)
[2017-03-28] MEDS: GABAPENTIN 100 MG CAPSULE PO SCH (20:41)
--- NOTE | 2017-03-29 06:17 | NUR ---
Pt slept comfortably throughout the shift. All needs anticipated and met accordingly. Denies pain or discomfort at this time. No acute distress noted. Kept clean, dry and comfortable. All due medications given as ordered and well tolerated. All safety measures and fall precautions maintained. Call light and all personal belongings within reach. Will continue to monitor. Will endorse to AM shift.
[2017-03-29] MEDS: LEVOTHYROXINE SODIUM 100 MCG TABLET PO SCH (06:30)
[2017-03-29] MEDS: ESCITALOPRAM OXALATE 10 MG TABLET PO SCH (09:00)
[2017-03-29] MEDS: POTASSIUM CHLORIDE 10 MEQ CAPSULE.SA PO SCH (10:12)
[2017-03-29] MEDS: DOCUSATE SODIUM 250 MG CAPSULE PO SCH (10:12)
[2017-03-29] MEDS: PREGABALIN 25 MG CAPSULE PO SCH (10:12)
[2017-03-29] MEDS: AMILORIDE PO SCH (10:13)
[2017-03-29] MEDS: HCTZ PO SCH (10:13)
--- NOTE | 2017-03-29 16:36 | NUR ---
D/C NOTE D/C ORDER ON CHART D/C HOME WITH HOME HEALTH WITH AND STEP SON TAKING HER IN FAMILY [facility]. D/C INSTRUCTIONS GIVEN TO PT AND VERBALIZE UNDERSTANDING. SKIN INTACT BRUISING GONE FROM ADMISSION. NO OTHER SKIN ISSUES PRESENT. WHEELED OUT TO CAR BY RN. DISCUSSED F/U APPT AND . MEDS FAXED TO PHARMACY OF CHOICE
== END 2017-03-29 16:00 | disposition home health service (06) | DRG 57 ==
PROVIDERS: ADMIT Physical Medicine & Rehabilitation Pain Medicine; ATTEND Physical Medicine & Rehabilitation Pain Medicine
DX: I69.354 Hemiplegia and hemiparesis following cerebral infarction affecting left non-dominant side (principal); E87.8 Other disorders of electrolyte and fluid balance, not elsewhere classified; G62.9 Polyneuropathy, unspecified; E03.9 Hypothyroidism, unspecified; F32.9 Major depressive disorder, single episode, unspecified; F41.9 Anxiety disorder, unspecified; M19.90 Unspecified osteoarthritis, unspecified site; R26.9 Unspecified abnormalities of gait and mobility; E16.2 Hypoglycemia, unspecified; E87.6 Hypokalemia; I10 Essential (primary) hypertension; Z87.440 Personal history of urinary (tract) infections; F10.21 Alcohol dependence, in remission; M47.812 Spondylosis without myelopathy or radiculopathy, cervical region; R42 Dizziness and giddiness
CPT/HCPCS: 36415; 70030-TC; 82088; 83735; 84100; 84244; 85025; 92507; 92523; 97110; 97112; 97116; 97165; 97530; 97535; J8499; Q0162; Q0163

== ENCOUNTER 2018-06-15 13:05 | Emergency (ER) | payer MEDICARE, BC ==
[~2018-06-15] VITALS: Ht 162.6 cm; Wt 52.2 kg
[~2018-06-15 13:05] MED LIST changes: -DISU500T3 PO
--- NOTE | 2018-06-15 13:27 | NUR ---
PT IS IN ROOM #2A. DR TURCIOS EVALUATED THE PT.
[2018-06-15 13:50] LABS: BASOPHILS % (AUTO) 0.8 % (0.0-2.0); EOSINOPHILS # (AUTO) 0.1 K/uL (0.0-0.7); EOSINOPHILS % (AUTO) 1.8 % (0.0-7.0); HEMATOCRIT 40.6 % (31.2-41.9); HEMOGLOBIN 13.8 g/dL (10.9-14.3); LYMPHOCYTES # (AUTO) 1.4 K/uL (20.0-40.0); LYMPHOCYTES % (AUTO) 23.2 % (20.5-51.5); MEAN CORPUSCULAR HGB CONC 34 g/dL (32.3-35.6); MEAN CORPUSCULAR VOLUME 99.8 fL (75.5-95.3); MONOCYTES # (AUTO) 0.5 K/uL (2.0-10.0); MONOCYTES % (AUTO) 8.5 % (0.0-11.0); NEUTROPHILS # (AUTO) 3.9 K/uL (1.8-8.9); NEUTROPHILS % (AUTO) 65.7 % (38.5-71.5); PLATELET COUNT (AUTO) 207 K/uL (179-408); RED BLOOD CELL COUNT(AUTO) 4.07 MIL/uL (3.63-4.92); WHITE BLOOD COUNT (AUTO) 5.9 K/uL (3.8-11.8)
[2018-06-15 13:59] LABS: CREATININE 0.8 mg/dL (0.6-1.3); POTASSIUM 3.8 mmol/L (3.5-5.1)
[2018-06-15 14:11] LABS: BILIRUBIN,DIRECT 0.1 mg/dL (0.0-0.2); BILIRUBIN,TOTAL 0.4 mg/dL (0.2-1.0)
--- NOTE | 2018-06-15 15:06 | NUR ---
PT WAS D/C'd TO HOME AFTER DR TURCIOS RE-EVALUATION. D/C INSTRUCTIONS GIVEN TOT HE PT. PT DENIES PAIN AT THIS TIME. NO S/S OF DISTRESS.
[2018-06-15 15:07] VITALS: BP 119/71
== END 2018-06-15 15:08 | disposition home or self-care (01) ==
LOC: ER 13:05
DX: R07.89 Other chest pain (principal); I25.10 Atherosclerotic heart disease of native coronary artery without angina pectoris; Z79.01 Long term (current) use of anticoagulants; Z79.899 Other long term (current) drug therapy; Z86.73 Personal history of transient ischemic attack (TIA), and cerebral infarction without residual deficits
CPT/HCPCS: 36415; 70030-TC; 85025; 93005; A4663

== ENCOUNTER 2018-07-05 15:03 | Emergency (ER) | payer MEDICARE, BC ==
[~2018-07-05] VITALS: Ht 162.6 cm; Wt 52.2 kg
[2018-07-05] MEDS ORDERED: MUPIROCIN 2% OINT 22 GM TUBE TP ONE (16:00)
[2018-07-05] MEDS ORDERED: MUPIROCIN 2% OINT 22 GM TUBE ONE (16:04)
--- NOTE | 2018-07-05 16:23 | NUR ---
Patient discharged to home in stable conditon. Written and verbal after care instructions given. Patient verbalizes understanding of instructions. Stressed follow up in 2 days or return to ER earlier for worsening s/s.
== END 2018-07-05 16:25 | disposition home or self-care (01) ==
LOC: ER 15:03
DX: S40.862A Insect bite (nonvenomous) of left upper arm, initial encounter (principal); L08.9 Local infection of the skin and subcutaneous tissue, unspecified; Z79.01 Long term (current) use of anticoagulants; Z79.899 Other long term (current) drug therapy; W57.XXXA Bitten or stung by nonvenomous insect and other nonvenomous arthropods, initial encounter; Y93.89 Activity, other specified; Y92.89 Other specified places as the place of occurrence of the external cause; Y99.8 Other external cause status
CPT/HCPCS: A4217; A4663

== ENCOUNTER 2018-07-07 10:47 | Emergency (ER) | payer MEDICARE, BC ==
[~2018-07-07] VITALS: Ht 162.6 cm; Wt 52.2 kg
--- NOTE | 2018-07-07 11:19 | NUR ---
PT IS IN ROOM #2A. DR BARFIELD EVALUATED THE PT.
[2018-07-07] MEDS ORDERED: MUPIROCIN 2% OINT 22 GM TUBE TP ONE (11:30)
[2018-07-07] MEDS ORDERED: MUPIROCIN 2% OINT 22 GM TUBE ONE (11:34)
--- NOTE | 2018-07-07 11:36 | NUR ---
GAUZE DRESSING WAS CHANGED ACCORDING TO DR LICO AGUIRRE.
--- NOTE | 2018-07-07 11:49 | NUR ---
PT WAS D/C'd TO HOME. D/C INSTRUCTIONS GIVEN TO THE PT.
[2018-07-07 11:55] VITALS: BP 129/75
== END 2018-07-07 11:56 | disposition home or self-care (01) ==
LOC: ER 10:47
DX: S41.102D Unspecified open wound of left upper arm, subsequent encounter (principal); M25.552 Pain in left hip; Z79.01 Long term (current) use of anticoagulants; Z79.899 Other long term (current) drug therapy; X58.XXXD Exposure to other specified factors, subsequent encounter
CPT/HCPCS: 72170; A4663

== ENCOUNTER 2019-04-15 17:25 | Emergency (ER) | payer MEDICARE, BC ==
[~2019-04-15] VITALS: Ht 160 cm; Wt 49.4 kg
[~2019-04-15 17:25] MED LIST changes: +SIMV-49 PO; -SIMV40TA5 PO
--- NOTE | 2019-04-15 17:41 | NUR ---
ERMD on the line with poison control
[2019-04-15 17:47] LABS: BASOPHILS % (AUTO) 0.6 % (0.0-2.0); EOSINOPHILS # (AUTO) 0.1 K/uL (0.0-0.7); EOSINOPHILS % (AUTO) 1.3 % (0.0-7.0); HEMATOCRIT 37.9 % (31.2-41.9); LYMPHOCYTES # (AUTO) 1.5 K/uL (20.0-40.0); LYMPHOCYTES % (AUTO) 21.9 % (20.5-51.5); MEAN CORPUSCULAR HEMOGLOBIN 33.6 uug (24.7-32.8); MEAN CORPUSCULAR HGB CONC 34 g/dL (32.3-35.6); MEAN CORPUSCULAR VOLUME 98.4 fL (75.5-95.3); MONOCYTES # (AUTO) 0.7 K/uL (2.0-10.0); MONOCYTES % (AUTO) 10.4 % (0.0-11.0); NEUTROPHILS # (AUTO) 4.4 K/uL (1.8-8.9); NEUTROPHILS % (AUTO) 65.8 % (38.5-71.5); PLATELET COUNT (AUTO) 243 K/uL (179-408); RED BLOOD CELL COUNT(AUTO) 3.85 MIL/uL (3.63-4.92); WHITE BLOOD COUNT (AUTO) 6.7 K/uL (3.8-11.8)
[2019-04-15 17:55] LABS: CREATININE 0.8 mg/dL (0.6-1.3); POTASSIUM 3.8 mmol/L (3.5-5.1)
[2019-04-15 18:09] LABS: ACETAMINOPHEN 8.5 ug/mL (10-30); BILIRUBIN,DIRECT 0.1 mg/dL (0.0-0.2); BILIRUBIN,TOTAL 0.4 mg/dL (0.2-1.0); TOTAL PROTEIN, SERUM 6.6 g/dL (6.4-8.2)
[2019-04-15 18:33] VITALS: BP 121/73
--- NOTE | 2019-04-15 18:33 | NUR ---
Patient discharged to home in stable conditon. Written and verbal after care instructions given. Patient verbalizes understanding of instructions. Patient ambulated with stable gait.
== END 2019-04-15 18:34 | disposition home or self-care (01) ==
LOC: ER 17:27
DX: T39.1X1A Poisoning by 4-Aminophenol derivatives, accidental (unintentional), initial encounter (principal); Z79.01 Long term (current) use of anticoagulants; Z79.899 Other long term (current) drug therapy; Y92.89 Other specified places as the place of occurrence of the external cause
CPT/HCPCS: 36415; 80048; 80076; 85025; 99283; G0480; A4663